=== PATIENT | female | born 1975 | race Caucasian/White ===

== ENCOUNTER → 2018-12-19 | Outpatient (CLI) | payer OTHER, MEDICAID | LOC: FIMAGING 12:05 | DX: N63.12 Unspecified lump in the right breast, upper inner quadrant (principal) ==

== ENCOUNTER 2019-03-26 14:25 | Emergency (ER) | payer OTHER, MEDICAID ==
[2019-03-26 14:48] VITALS: BP 145/98
== END 2019-03-26 15:16 | disposition left against medical advice (07) ==
DX: Z53.21 Procedure and treatment not carried out due to patient leaving prior to being seen by health care provider (principal)